=== PATIENT | male | born 1950 | race Two or more races ===

== ENCOUNTER 2017-12-21 15:40 | Emergency (ER) | payer MEDICARE, OTHER ==
[~2017-12-21] VITALS: Ht 175.3 cm; Wt 81.6 kg
[2017-12-21 18:01] VITALS: BP 132/95
== END 2017-12-21 18:02 | disposition home or self-care (01) ==
LOC: ER 15:49
DX: S76.912A Strain of unspecified muscles, fascia and tendons at thigh level, left thigh, initial encounter (principal); W18.39XA Other fall on same level, initial encounter; Y93.89 Activity, other specified; Y92.89 Other specified places as the place of occurrence of the external cause; Y99.8 Other external cause status
CPT/HCPCS: 71045; 73700; 93971